=== PATIENT | male | born 2000 | race Caucasian/White ===

== ENCOUNTER 2021-09-28 19:12 | Emergency (ER) | payer OTHER, BC ==
[2021-09-28 19:50] VITALS: BP 141/74; PULSE 77; RESP 18; TEMP 98.3
--- NOTE | 2021-09-28 20:33 | XR ---
Result: History: Pain. Comparison: None available. Technique: 3 views of the right foot. Findings: The bone mineralization is appropriate for age. No acute fracture or dislocation is seen. The visualized osseous structures are in anatomic alignmen t. The joint spaces are preserved. No destructive osseous changes or abnormal soft tissue calcifica tions seen. Impression: No acute osseous abnormality.
--- NOTE | 2021-09-28 20:57 | ED ---
Lower Extremity Injury HPI - General Chief Complaint: Extremity Injury, Lower Stated Complaint: foot injury Time Seen by Provider: 09/28/21 20:46 Source: patient Mode of arrival: ambulatory Limitations: no limitations - History of Present Illness Initial Comments: Patient is a 21-year-old male presenting with chief complaint of right foot pain. Patient states that in a moment of frustration today he kicked the car tire with the foot. He is having pain with ambulation and weightbearing, however he is still able to ambulate. He has been icing the foot and taking Motrin and Tylenol for pain control. He denies any numbness, tingling, weakness, loss of range of motion, redness, swelling. - Related Data Allergies Allergy/AdvReac Type Severity Reaction Status Date / Time No Known Allergies Allergy Verified 09/28/21 19:50 Review of Systems ROS Statement: Those systems with pertinent positive or pertinent negative responses have been documented in the HPI. ROS Other: All systems not noted in ROS Statement are negative. Past Medical History Past Medical History: No Reported History History of Any Multi-Drug Resistant Organisms: None Reported Past Surgical History: No Surgical Hx Reported Past Psychological History: No Psychological Hx Reported Smoking Status: Vaper Past Alcohol Use History: Occasional Past Drug Use History: None Reported General Exam Limitations: no limitations General appearance: alert, in no apparent distress Head exam: Present: atraumatic, normocephalic, normal inspection Eye exam: Present: normal appearance, EOMI. Absent: scleral icterus Neck exam: Present: normal inspection Right Ankle exam: Present: normal inspection, full ROM. Absent: tenderness, swelling Foot/Toe exam: Present: normal inspection, full ROM, tenderness, swelling. Absent: ecchymosis, deformity, erythema, puncture wound Neurovascular tendon exam: Present: no vascular compromise. Absent: sensory deficit Gait: antalgic Neurological exam: Present: alert, oriented X3, CN II-XII intact Psychiatric exam: Present: normal affect, normal mood Skin exam: Present: warm, dry, intact, normal color. Absent: rash Course Vital Signs 09/28/21 19:47 Temperature 98.3 F Pulse Rate 77 Respiratory 18 Rate Blood Pressure 141/74 O2 Sat by Pulse 97 Oximetry Medical Decision Making - Medical Decision Making Patient is a 21-year-old male presenting with chief complaint of right foot pain. Injured foot today after kicking a tire out of frustration. He is complaining of pain with ambulation. On examination there is full range of motion, sensation is intact, pedal pulse is palpated, no redness or swelling. There is some tenderness on palpation over the lateral half of the foot. X-ray shows no acute fracture or dislocation. Patient was provided with Quinten wrap, ice pack, walking shoe. Provided with a work note. Educated the patient on supportive treatment. Follow-up with PCP this week. Report back to ER if any worsening symptoms. Educated the patient on return parameters and alarm symptoms. Patient conveyed verbal understanding and agreed to the plan. Disposition Clinical Impression: Foot sprain Disposition: HOME SELF-CARE Condition: Good Instructions (If sedation given, give patient instructions): Foot Sprain (ED) Additional Instructions: Utilize Motrin, Tylenol, ice, elevation, compression at home for symptomatic management. Follow-up with your PCP in one week. Report back to ER with any worsening symptoms. Is patient prescribed a controlled substance at d/c from ED?: No Referrals: None,Stated [Primary Care Provider] - 10/04/21 Time of Disposition: 20:56
== END 2021-09-28 21:10 | disposition home or self-care (01) ==
LOC: EC 19:12
DX: S93.601A Unspecified sprain of right foot, initial encounter (principal); F17.209 Nicotine dependence, unspecified, with unspecified nicotine-induced disorders; W22.8XXA Striking against or struck by other objects, initial encounter
CPT/HCPCS: 99283